=== PATIENT | female | born 1990 | race Caucasian/White ===

== ENCOUNTER → 2019-07-11 07:13 | Outpatient (CLI) | payer OTHER, SELFPAY ==
--- NOTE | 2019-07-11 | DI.US.S_ITS ---
PROCEDURE: US OB >= 14 WEEKS FETUS INDICATIONS: ANATOMY OUTSIDE/PRIOR DATING DATA: Last menstrual period (LMP): 02/14/2019. LMP-based estimated date of delivery (KANWAL): 11/21/2019. First dating scan (date and location): 07/11/2019. Estimated date of delivery (KANWAL) from first dating scan: 11/27/2019. TECHNIQUE: Real-time scanning was performed of the fetus, with image documentation and biometric measurements. Endovaginal scanning: not performed COMPARISON: [facility], , PELVIC COMPLETE WITH TRANSVAGINAL, 01/04/2019, 15:43. FINDINGS: General: A single living intrauterine gestation is present. Presentation: Breech. Placenta: Placental position is anterior, without previa. Amniotic fluid index: 15.9 cm, normal range is 5-24 cm; the largest pocket 5 cm heart rate: 140 beats per minute. Maternal cervical canal: 3.7 cm long. Normal lower limit is 2.5 cm. biometrics: Biparietal diameter: 20 weeks 0 day Head circumference: 20 weeks 1 day Abdominal circumference: 21 weeks 1 day Femur length: 20 weeks 2 days Estimated gestational age from initial scan: 20 weeks 1 day. Composite gestational age from present scan: 20 week 3 day Estimated weight and percentile: 366 gm; 73% Measurement variability for biometric dating: +/- 7 days from 14 weeks to 15 weeks 6 days gestation, +/- 10 days from 16 weeks to 21 weeks 6 days gestation, +/- 2 weeks from 22 weeks to 27 weeks 6 days gestation, +/- 3 weeks for 28 weeks gestation or later. weight reference: 4500 g or EFW >90/95% is considered macrosomia or large for gestational age. EFW <10% is small for gestational age. EFW 5% or less is considered intra-uterine growth restriction. Anatomic survey: Neuro: Ventricles are non-dilated at less than 10 mm. Cisterna magna is normal at 3-11 mm. Cerebellum is normal in size and morphology. Nuchal skin fold: Normal at less than 6 mm between 14-21 weeks gestational age. Face: Nose and lips, facial profile are normal. Spine: No evidence for spina bifida. Heart: 4-chambered heart is present, the ventricular outflow tracts are not well seen. Diaphragm: Diaphragm is intact. Stomach: Left-sided stomach is present. Kidneys: No hydronephrosis. Normal is less than 5 mm in 2nd trimester, less than 7 mm in 3rd trimester. Cord: 3-vessel cord has orthotopic insertion. Bladder: Normal in size. Extremities: All 4 extremities identified. IMPRESSION: 1. A single living intrauterine gestation with appropriate interval growth. 2. cardiac outflow tracts are not well-seen; otherwise normal anatomic survey. Dictated by: Tristin Pederson M.D. on 07/11/2019 at 9:09 Approved by: Tristin Pederson M.D. on 07/11/2019 at 9:21
== END ==
PROVIDERS: Referring Provider Nurse Practitioner Obstetrics & Gynecology; Visit Provider Nurse Practitioner Obstetrics & Gynecology
DX: Z3A.20 20 weeks gestation of pregnancy (principal)
CPT/HCPCS: 76811

== ENCOUNTER → 2019-07-19 10:09 | Outpatient (CLI) | payer OTHER, SELFPAY ==
--- NOTE | 2019-07-19 | DI.US.S_ITS ---
PROCEDURE: US OB FOLLOW UP INDICATIONS: RE-CHECK OUTFLOW TRACTS. OUTSIDE/PRIOR DATING DATA: Last menstrual period (LMP): 02/14/2019. LMP-based estimated date of delivery (KANWAL): 11/21/2019. First dating scan (date and location): 07/11/2019. Estimated date of delivery (KANWAL) from first dating scan: 11/27/2019. TECHNIQUE: Real-time scanning was performed of the fetus, with image documentation. COMPARISON: [facility], OB >= 14 WEEKS FETUS, 07/11/2019, 7:28. FINDINGS: A single live intrauterine gestation is present. Presentation: Breech. Placenta: Placental position is anterior, without previa. Amniotic fluid index: 12.1 cm, normal range is 5-24 cm. heart rate: 150 beats per minute. Maternal cervical canal: 3.2 cm long. Normal lower limit is 2.5 cm. Estimated gestational age from initial scan: 21 weeks 2 days. The cardiac outflow tracts now demonstrate normal appearance. IMPRESSION: Normal appearance of the cardiac outflow tracts. Dictated by: Jax Ruiz M.D. on 07/22/2019 at 11:27 Approved by: Jax Ruiz M.D. on 07/22/2019 at 11:28
== END ==
PROVIDERS: Referring Provider Nurse Practitioner Obstetrics & Gynecology; Visit Provider Nurse Practitioner Obstetrics & Gynecology
DX: Z36.2 Encounter for other antenatal screening follow-up (principal); Z3A.21 21 weeks gestation of pregnancy
CPT/HCPCS: 76816

== ENCOUNTER → 2019-09-09 07:00 | Outpatient (CLI) | payer OTHER, SELFPAY ==
[2019-09-09 07:48] LABS: Hematocrit 35.5 % (36-46); Hemoglobin 12.6 g/dL (12.0-16.0); Mean Corpuscular HGB Conc 35.5 % (30-36); Mean Corpuscular Hemoglobin 33.4 PG (26-34); Mean Corpuscular Volume 94.3 fL (80-100); Platelet Count 190 X10^3/uL (150-400); Red Blood Cell Count 3.76 X10^6/uL (4.0-5.2); Red Cell Distribution Width 12.9 % (11.6-14.8); White Blood Cell Count 8.7 X10^3/uL (4.5-11.0)
[2019-09-09 08:12] LABS: Glucose Fasting 84 mg/dL (70-100)
[2019-09-09 08:40] LABS: Glucose 1 Hour 140 mg/dL (70-170)
[2019-09-09 10:28] LABS: Glucose Tol Interpretation INTERPRETATION
[2019-09-09 10:35] LABS: Glucose 2 Hour 95 mg/dL (70-140)
== END ==
PROVIDERS: Referring Provider Nurse Practitioner Obstetrics & Gynecology; Visit Provider Nurse Practitioner Obstetrics & Gynecology
DX: Z34.90 Encounter for supervision of normal pregnancy, unspecified, unspecified trimester (principal); Z13.1 Encounter for screening for diabetes mellitus; Z3A.26 26 weeks gestation of pregnancy
CPT/HCPCS: 36415; 82951; 82952; 85027

== ENCOUNTER 2019-10-16 12:50 | Outpatient (CLI) | payer OTHER, SELFPAY ==
--- NOTE | 2019-10-16 13:02 | PM.OBTRLD ---
Visit Information Visit Information Date of evaluation: 10/16/19 Primary OB Provider: Neetu Carl On-call OB Provider: Charline Heath Comments/Additional reasons for admission: 28YO @ 34wks by LMP and early US presents for evaluation of decreased FM. Has felt some hiccups and small FM, but not the normal level of activity for the last few days. No cramping, VB or LOF. Uncomplicated PN care w/ CNM. Vital Signs Vital Signs: BP 125/65, HR 75bpm, RR16/min, T97.9F Temporal Review of Systems Review of Systems ROS: Yes All systems reviewed with the patient and are negative except as otherwise documented Exam Vital Signs (past 8 hours): see above Presentation: vertex Evaluation Evaluation Baseline heart rate: 120 Variability: Moderate (11-25) monitor accelerations: Present monitor decelerations: Absent Contraction Frequency (minutes): 0 Category of Tracing: I Comments: CE not indicated Diagnosis, Plan/Disposition Final Diagnosis (1) Decreased movement affecting management of in third trimester: Status: Acute Problem details: RNST. Reassurance of normal given and kick counts discussed. Plan/Disposition Plan: Dischareg to home with routine precautions OB Disposition: home
== END 2019-10-16 13:11 | disposition home or self-care (01) ==
LOC: OB 14:23
PROVIDERS: Referring Provider Nurse Practitioner Obstetrics & Gynecology; Visit Provider Nurse Practitioner Obstetrics & Gynecology
DX: O36.8130 Decreased fetal movements, third trimester, not applicable or unspecified (principal); Z3A.34 34 weeks gestation of pregnancy
CPT/HCPCS: 59025; G0378; G0379

== ENCOUNTER → 2019-10-31 09:42 | Outpatient (ROUT) | payer OTHER, SELFPAY ==
[2019-10-31 10:05] LABS: Alanine Aminotransferase 16 IU/L (<35); Albumin 3.2 g/dL (3.5-5.0); Albumin Globulin Ratio 1.3 (1.0-2.8); Alkaline Phosphatase 170 U/L (38-126); Aspartate Aminotransferase 24 IU/L (14-36); Bilirubin Total 0.4 mg/dL (0.2-1.3); Bilirubin Unconjugated 0.3 mg/dL (0.0-1.1); Globulin 2.4 g/dL (1.7-4.1); HEMOLYSIS < 15 (0-50); Total Protein 5.6 g/dL (6.3-8.2)
[2019-11-01 09:40] LABS: Bile Acids 3.6 umol/L (0.0-10.0)
== END ==
PROVIDERS: Visit Provider Nurse Practitioner Obstetrics & Gynecology
DX: Z34.90 Encounter for supervision of normal pregnancy, unspecified, unspecified trimester (principal); Z36.85 Encounter for antenatal screening for Streptococcus B; L29.8 Other pruritus; Z3A.36 36 weeks gestation of pregnancy
CPT/HCPCS: 80076; 82239; 87081

== ENCOUNTER 2019-11-22 07:37 | Inpatient (IN) | payer OTHER, SELFPAY ==
--- NOTE | 2019-11-22 07:45 | PM.OBHP.1 ---
OB HPI Date/Time Date of admission: 11/22/19 Date Patient Seen: 11/22/19 Time Patient Seen: 07:40 History of Present Condition Chief complaint: MATERNITY : 2 Para: 0 Estimated Date of Delivery: 11/27/19 Estimated Gestational Age (weeks): 39.2 Narrative: Concepcion Yepez is a 28 year old female @ [id number] by sure LMP and early US who presents for evaluation of labor. Contractions started last night at 10pm and have steadily progressed in frequency and intensity. +FM. No VB or LOF. History of Present care: good care, initiated at week # (7), number of visits (11) and pounds weight gain (22) Dating criteria: LMP confirmed by 1st trimester US Ultrasounds: normal 1st trimester US and normal mid trimester US Obstetrical complications: none Medical complications: none Preadmission Labs Blood type: A (+) positive -: Antibody screen: negative, GBS status: negative, HBsAG: negative, HIV: negative and RPR/VDLR: negative -: Chlamydia screen: not detected and Gonorrhea screen: not detected -: Rubella: immune HCT: 35.5 HCAB: negative PAP: Normal Cell-free DNA: negative, male (XY) Narrative: 2 hr gtt: 84/140/95 Prior (ies) History: 01/04/19: 6wk SAB Evaluation Evaluation Baseline heart rate: 145 Variability: Moderate (11-25) monitor accelerations: Present monitor decelerations: Absent Contraction Frequency (minutes): 4 Uterine Contraction Intensity: Strong/Firm Category of Tracing: Reactive Cervical dilation (cm): 4 Cervical effacement (%): 85 station: -3 Laboratory results: [id number] Surgical History (Updated 11/22/19 @ 08:14 by Neetu Carl CNM) History of lateral meniscus repair of left knee (Acute) Family History (Updated 11/22/19 @ 08:16 by Neetu Carl CNM) Father Substance abuse Social History (Updated 11/22/19 @ 08:16 by Neetu Carl CNM) marital status: household members: spouse lives independently: Yes caregiver/support person: No housing: house education level: college occupational status: employed current occupational exposures/hazards: No Smoking Status: Never smoker Meds Home Medications and Allergies Home Medications Medication Instructions Recorded Confirmed Type 11/22/19 History Allergies Allergy/AdvReac Type Severity Reaction Status Date / Time No Known Drug Allergies Allergy Unverified 11/22/19 08:11 Exam Vital Signs (past 8 hours): BP 112/65, HR 72bpm, T 36.1C Temporal, SpO2 97% Resp Effort & Inspection: normal respiratory effort Auscultation: clear to auscultation bilaterally Cardio Rate: regular rate Rhythm: regular rhythm Heart Sounds: S1 normal and S2 normal Uterus Location (Fundal Height): 37 Presentation: vertex Estimated Weight (lbs): 7 Assessment and Plan Assessment and Plan Assessment and Plan narrative: A: Term primipara Active Labor No indication for GBS prophylaxis Cat I FHR P: Admit, routine orders w/ rapid COVID testing. May switch to IA. Labor support PRN. Reassess in 4 hours or sooner, PRN. Time Spent with Patient Total time spent with greater than 50% in coordination of care (as documented) at patient's floor/unit and/or counseling patient:: 15-24 minutes
[2019-11-22 09:35] LABS: COVID19 -Nasal RAPID Negative (Negative)
[2019-11-22 09:50] LABS: Add Manual Diff / Slide Review NO; Basophils Absolute Auto 100 /uL (0-100); Basophils Percent Auto 0.3 % (0-2); Eosinophils Absolute Auto 0 /uL (0-450); Eosinophils Percent Auto 0.3 % (2-4); Hematocrit 40.9 % (36-46); Lymphocytes Absolute Auto 1900 /uL (1100-4500); Lymphocytes Percent Auto 10.9 % (25-40); Mean Corpuscular HGB Conc 34.3 % (30-36); Mean Corpuscular Hemoglobin 31.9 PG (26-34); Mean Corpuscular Volume 92.9 fL (80-100); Monocytes Absolute Auto 700 /uL (0-900); Monocytes Percent Auto 4.1 % (3-14); Neutrophils Absolute Auto 14800 /uL (1500-7000); Neutrophils Percent Auto 84.4 % (50-75); Platelet Count 225 X10^3/uL (150-400); Red Cell Distribution Width 12.9 % (11.6-14.8); White Blood Cell Count 17.5 X10^3/uL (4.5-11.0)
[2019-11-22 11:34] VITALS: BP 112/66
--- NOTE | 2019-11-22 13:25 | PM.OBPNLAB ---
Date/Time Date Patient Seen: 11/22/19 Time Patient Seen: 13:20 Pain Control Pain control: tolerating well Comments: Has been breathing through regular contractions every 2-5 minutes until 45 minutes ago when contractions spaced to Q8 minutes. Pt was able to rest, but is now planning to move and get things going again. Pelvic Exam Dilation (cm): 5 Effacement (%): 90 station: -2 Amniotic membrane status: Bulging Contractions Contractions on admission: regular Monitor mode: Palpation Pitocin rate (mU/min): 0 Contraction pattern: Regular Contraction intensity: Strong/Firm Status status: Category l Heart Rate Baseline: 135 Comments: Reassuring by IA. No decreases. Assessment and Plan Assessment: active labor Plan: continuous present management Comments: Encouraged ambulation and lots of movement. Discussed labor augmentation which patient declines at this time, but agrees to if contractions stay spaced over the next hour or so. RN notified of plan and IA Q30 minutes. Reassess in 4 hours or sooner, PRN.
--- NOTE | 2019-11-22 17:43 | PM.OBPNLAB ---
Date/Time Date Patient Seen: 11/22/19 Time Patient Seen: 17:35 Pain Control Pain control: tolerating well Comments: breathing through regular contractions, coping well. Pelvic Exam Dilation (cm): 6 Effacement (%): 90 station: -2 Amniotic membrane status: Bulging Contractions Monitor mode: Palpation Pitocin rate (mU/min): 0 Contraction frequency (min): 4 Contraction duration (min): 2 Contraction pattern: Regular Contraction intensity: Strong/Firm Status status: Category l Heart Rate Baseline: 140 Comments: Regular rate, no decreases, remains reassuring by IA. Assessment and Plan Assessment: active labor Comments: Discussed slow, but steady progress. Offered labor augmentation w/ pitocin and/or AROM. Patient currently declines both options, but is considering them for later. Planning labor tub and continue IA and labor support. Reassess in 4 hours or sooner, PRN.
[2019-11-22] MEDS: OXYTOCIN PREMIX 30 UNIT/500 ML PLAST..BAG IV (19:00)
[2019-11-22] MEDS: LACTATED RINGERS 1,000 ML 100 ML IV (19:01)
--- NOTE | 2019-11-22 19:27 | PM.OBPNLAB ---
Date/Time Date Patient Seen: 11/22/19 Time Patient Seen: 19:20 Pain Control Pain control: tolerating well Comments: Contractions spaced in the tub and patient requested pitocin augmentation which was started at 1905. VSS, see OBIX. Pelvic Exam Dilation (cm): 6 Effacement (%): 90 station: -2 Amniotic membrane status: Bulging Comments: CE deferred Contractions Monitor mode: Palpation Pitocin rate (mU/min): 2 Contraction frequency (min): 6 Contraction pattern: Regular Contraction intensity: Moderate Status status: Category l Heart Rate Baseline: 140 Monitor Accelerations: Present Monitor Decelerations: Absent Monitor Variability: Moderate Assessment and Plan Assessment: active labor Plan: begin patient augmentation Comments: Will perform CE 2 hours after strong, regular contractions are achieved. Continuous EFM, continuous labor support. OB Back-up/ notified of pt status, progress and plan for augmentation once patient consented at 1730. Reassess in 4 hours or sooner, PRN.
--- NOTE | 2019-11-23 02:39 | P.PCNOB_ITS ---
Labor & Delivery Delivery date: 11/23/19 Intrapartal events: None Cervical ripening method: none Induction method: none Delivery augmentation: pitocin Delivery monitor: external FHT and external uterine Route of delivery: L&D Laceration Description: Perineal - 1st Degree and Vaginal - 2nd Degree Delivery repair: chromic (3.0) Estimated blood loss (mL): 300 Anesthesia type: None Narrative: Patient labored well unmedicated for pain. Labor was augmented with pitocin max 4u/min. Patient began to feel spontaneous urge to push and was found to be C/C/0. Patient was assisted out of the tub and into bed where she was coached on pushing. Slow, but steady descent of vertex was noted throughout second stage. Cat II FHR for recurrent variable decelerations w/ pushing, improved w/ position changes. NSVB of a vigorous baby boy in ROP position w/ no NC and easy delivery of the shoulder. [place] was placed on maternal abdomen for drying and [id number]. Pitocin was increased to 300mL/hr for AMTSL. Apgars 9/9. After cessation of pulsation, the cord was double clamped and cut. Hospital cord blood hold sample was collected. Gentle cord traction led to spontaneous, Schultze delivery of an apparently intact placenta, membranes and 3VC. Placenta was noted to have a separate lobe and significant calcifications. Fundus firm and bleeding minimal. Inspection revealed a 1st degree perineal laceration that extended to a 2nd degree left sulcus vaginal laceration. These were repaired w/ 3.0 Chromic in the usual fashion. QBL 300mL. both mother and baby stable and as I left the room. [place] Baby 1: gender: Male Presentation: vertex position: Right Occiput Posterior Placenta delivery description: Spontaneous cord vessel description: 3 Vessels score (1 min): 9 score (5 min): 9 Plan for aftercare: Routine PP orders.
[2019-11-23] MEDS: KETOROLAC 30 MG/ML VIAL IV (03:30)
[2019-11-23] MEDS: DERMOPLAST SPRAY 20% 60 ML 1 SPRAY TOP (09:24)
[2019-11-23] MEDS: PRENATAL VIT,CALC/IRON/FOLIC 1 TABLET 1 TAB PO (09:25)
[2019-11-23] MEDS: DOCUSATE 100 MG CAPSULE PO (09:25)
[2019-11-23] MEDS: LANOLIN OINT 7 GM 1 APPLIC TOP (09:25)
[2019-11-23] MEDS: IBUPROFEN 600 MG TABLET PO ×2 (09:25→15:10)
[2019-11-23 17:31] VITALS: BP 116/61; PULSE 73; RESP 16; TEMP 37.2
--- NOTE | 2019-11-23 19:31 | P.DS_ITS ---
Discharge Providers Provider Date of admission: 11/22/19 07:37 Discharge Date: 11/23/19 Primary care physician: Neetu Carl Consults: 11/24/19 02:37 Consult to Unemployment Inspector Routine Comment: Discharge provider: Neetu Carl CNM Summary Hospital Course Date Patient Seen: 11/23/19 Time Patient Seen: 17:30 Hospital Course: Patient eager for discharge to home. Voiding and ambulating independently. well today without assistance. Pain well controlled w/ PO medication. Tolerating general diet. Lochia light, no clots. Has been icing perineum with significant improvement in discomfort and swelling. present and supportive. Peripartum Data Infant Delivery Method: Natural Vaginal Laceration Description: Perineal - 1st Degree and Vaginal - 2nd Degree complications: none [place] 1: Gender: Male Disposition of : home Status at Discharge Functional status at discharge: independent ambulation Overall status at discharge: patient is progressing back to baseline Time Spent with Patient Time attestation: Total time spent providing and/or coordinating discharge services: Time spent: Less than 30 minutes Objective Labs Result Diagrams: 11/22/19 09:45 Exam Vital Signs (past 8 hours): - 11/23/19 17:31 Temperature 99.0 F Pulse Rate 73 Respiratory Rate 16 Blood Pressure 116/61 Other: Fundus firm @ U and lochia light. Psych Appearance: grossly normal Affect: normal affect Thought Process: normal Discharge Plan Discharge Plan Patient Disposition: Home Discharge orders & Medications Prescriptions: New ibuprofen 600 mg Tablet 600 mg PO Q6HR PRN (Reason: Pain, Mild (1-3)) 14 Days Qty: 60 RF: 1 docusate sodium [DOK] 100 mg Capsule 100 mg PO DAILY 14 Days Qty: 28 RF: 0 acetaminophen 325 mg Tablet 650 mg PO Q6HR PRN (Reason: Pain, Mild (1-3)) 14 Days Qty: 60 RF: 1 Continued 1 tab bottle DAILY RF: 0 Follow up/Referrals: Neetu Carl CNM [[employer]] - (Follow up in 2 weeks and 6 weeks , as scheduled. Call with any concerns) Diet/Activity/Treatments Diet: Diet as Tolerated Activity: pelvic rest x 6 weeks Skin/Wound/Dressing Care Report to your healthcare provider any signs of infection, such as:: chills, fever, increased pain, unusual drainage and unusual redness Visit Report/Discharge Packet Instructions: DI for Depression Visit Report Forms: Patient Portal/API, Stroke Signs & Symptoms Discharge Data Attending Provider: Neetu Carl Admit Date/Time: 11/22/19 07:37
== END 2019-11-23 21:10 | disposition home or self-care (01) | DRG 807 ==
PROVIDERS: Admitting Provider Nurse Practitioner Obstetrics & Gynecology; Referring Provider Nurse Practitioner Obstetrics & Gynecology; Visit Provider Nurse Practitioner Obstetrics & Gynecology
DX: O70.1 Second degree perineal laceration during delivery (principal); Z37.0 Single live birth; Z3A.39 39 weeks gestation of pregnancy; O70.0 First degree perineal laceration during delivery; Z11.59 Encounter for screening for other viral diseases
CPT/HCPCS: 59050; 85025; 86850; 86900; 86901; 87635; G0378; G0379; J1885; J2590

== ENCOUNTER → 2022-03-07 08:34 | Outpatient (CLI) | payer OTHER, SELFPAY ==
--- NOTE | 2022-03-07 | DI.US.S_ITS ---
PROCEDURE: US OB >= 14 WEEKS FETUS INDICATIONS: ANATOMY SCAN OUTSIDE/PRIOR DATING DATA: Last menstrual period (LMP): 10/01/2021. LMP-based estimated date of delivery (KANWAL): 07/08/2022. First dating scan (date and location): 11/25/2021. Estimated date of delivery (KANWAL) from first dating scan: 07/17/2022. The calculations are made using the working KANWAL of 07/17/2022. TECHNIQUE: Real-time scanning was performed of the fetus, with image documentation and biometric measurements. Endovaginal scanning: Not performed COMPARISON: [facility], US, US OB < 14 WEEKS + OB TRANSVAG, 11/25/2021, 10:36. FINDINGS: General: A single living intrauterine gestation is present. Presentation: Breech. Placenta: Placental position is anterior , without previa. Amniotic fluid index: 18.7 cm, normal range is 5-24 cm. Single deepest vertical pocket is 5.2 cm. heart rate: 131 beats per minute. Maternal cervical canal: 4.1 cm long. Normal lower limit is 2.5 cm. biometrics: Biparietal diameter: 22 weeks 1 day Head circumference: 21 weeks 3 days Abdominal circumference: 22 weeks 0 day Femur length: 20 weeks 3 days Clinically estimated gestational age: 21 weeks 1 days Composite gestational age from present scan: 21 weeks 4 days Estimated weight and percentile: 419 g; 57%. Anatomic survey: Neuro: Ventricles are non-dilated at less than 10 mm. Cisterna magna is normal at 3-11 mm. Cerebellum is normal in size and morphology. Nuchal skin fold: Normal at less than 6 mm between 14-21 weeks gestational age. Face: Nose and lips, facial profile are normal. Spine: No evidence for spina bifida. Heart: 4-chambered heart is present, with normal ventricular outflow tracts. Diaphragm: Diaphragm is intact. Stomach: Left-sided stomach is present. Kidneys: No hydronephrosis. Normal is less than 5 mm in 2nd trimester, less than 7 mm in 3rd trimester. Cord: 3-vessel cord has orthotopic insertion. Bladder: Normal in size. Extremities: All 4 extremities identified. IMPRESSION: 1. A single living intrauterine gestation with appropriate interval growth. 2. Normal anatomic survey. 3. Fetus in breech presentation. We strive to produce accurate, complete, and clear reports of imaging services. To assist us in improving patient care, this report was composed using standard report templates and voice recognition software. Therefore, it may contain abnormal punctuation, insertions and/or omissions. Occasional wrong-word or sound-alike substitutions may occur. Though we review the report and make efforts to correct it, we do recommend that the report be read carefully in proper context to recognize any text inaccuracies. Dictated by: Tristin Pederson M.D. on 03/07/2022 at 11:55 Approved by: Tristin Pederson M.D. on 03/07/2022 at 11:59
== END ==
PROVIDERS: Referring Provider Nurse Practitioner Obstetrics & Gynecology; Visit Provider Nurse Practitioner Obstetrics & Gynecology
DX: Z34.92 Encounter for supervision of normal pregnancy, unspecified, second trimester (principal); Z3A.21 21 weeks gestation of pregnancy
CPT/HCPCS: 76811

== ENCOUNTER → 2022-03-29 07:46 | Outpatient (CLI) | payer OTHER, SELFPAY ==
[2022-03-29 08:17] LABS: Hematocrit 33.2 % (36-46); Hemoglobin 11.8 g/dL (12.0-16.0); Mean Corpuscular HGB Conc 35.6 % (30-36); Mean Corpuscular Hemoglobin 32.7 PG (26-34); Mean Corpuscular Volume 91.9 fL (80-100); Platelet Count 189 X10^3/uL (150-400); Red Blood Cell Count 3.61 X10^6/uL (4.0-5.2); Red Cell Distribution Width 12.4 % (11.6-14.8); White Blood Cell Count 7.3 X10^3/uL (4.5-11.0)
[2022-03-29 08:31] LABS: Glucose Fasting 81 mg/dL (70-100)
[2022-03-29 10:09] LABS: Glucose Tol Interpretation INTERPRETATION
[2022-03-29 10:16] LABS: Glucose 1 Hour 108 mg/dL (70-170)
[2022-03-29 10:48] LABS: Glucose 2 Hour 74 mg/dL (70-140)
== END ==
PROVIDERS: Referring Provider Nurse Practitioner Obstetrics & Gynecology; Visit Provider Nurse Practitioner Obstetrics & Gynecology
DX: Z34.90 Encounter for supervision of normal pregnancy, unspecified, unspecified trimester (principal); Z13.1 Encounter for screening for diabetes mellitus; Z3A.26 26 weeks gestation of pregnancy
CPT/HCPCS: 36415; 82951; 82952; 85027

== ENCOUNTER 2022-07-20 08:57 | Inpatient (IN) | payer OTHER, SELFPAY ==
--- NOTE | 2022-07-20 | PATH_ITS ---
[facility] Accession Number: [id number] No. of containers..01 Tissue . 01 Material submitted: . placenta - PLACENTA . 01 Diagnosis: Placenta, Delivery: Mature edmonds placenta (339 grams) with perivillous fibrin deposition and calcification. - Negative for villitis, infarction, and neoplasia. Marginally inserted membranes. - Negative for chorioamnionitis and meconium staining. Eccentrically attached trivascular umbilical cord. - Negative for funisitis, true knots, and thrombosis. - A possible accessory lobe is identified. 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 [facility] 07/26/2022 1020 Local . 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 . 01 Electronically signed: . Merle Mcclure MD, Pathologist NPI- [id number] . 01 Gross description: . The specimen is received in formalin labeled with the patient's name, , and placenta, and consists of an irregularly shaped edmonds placenta with a trimmed weight of 339 grams, and measuring 20.5 x 14.9 x 1.6 cm. The placental disc invaginates forming an almost complete accessory lobe measuring 7.9 x 6.4 cm still connected to the main placenta in an area measuring 2.3 cm wide. No additional lobes are identified. . The membranes are loo and translucent with a small well-circumscribed pale loo nodule measuring 0.3 x 0.3 x 0.2 cm. No additional areas of discoloration or thickening are identified. The membranes insert at the margin and have a point of rupture 2.3 cm from the nearest placental disc edge. . The cord is detached and measures 37.7 cm in length by 1.0 cm in average diameter with a leftward coil and an index of approximately 2 twists per 5 cm. The cord was detached at the surface, so the presumed insertion point is eccentric measuring 3.5 cm from the nearest placental disc edge. Sectioning reveals unremarkable trivascular architecture with no knots or lesions identified. . The surface is pink-fletcher with normal arborizing vasculature with no areas of discoloration or lesions identified. . The maternal surface is apparently complete with loo, roughened areas of discoloration occupying approximately 20% of the maternal surface. No adherent hemorrhage is identified, and sectioning reveals a red, spongy cut surface with no areas of loo discoloration or lesions identified. . [employer] sections are submitted as follows: A1: Cord. A2: Membrane roll. A3-A4: Full thickness maternal surface discoloration. A5-A7: Central full thickness normal sections. ([id number]) /HEIDY 07/21/2022 1141 Local . 01 Pathologist provided ICD-10: O43.90 . 01 CPT . 108715 Specimen Comment: A courtesy copy of this report has been sent to [facility] Pathology Performed at: 01 [facility] Cytology [address] [place] [address], [place], [place] [id number] MD Kong Rodriguez MD Phone: [phone]
[2022-07-20] MEDS: AMPICILLIN 2,000 MG in SODIUM CHLORIDE 0.9% 100 ML 200 MG IV (09:50)
[2022-07-20 09:58] LABS: Add Manual Diff / Slide Review NO; Basophils Absolute Auto 100 /uL (0-100); Basophils Percent Auto 0.7 % (0-2); Eosinophils Absolute Auto 200 /uL (0-450); Hematocrit 39.6 % (36-46); Hemoglobin 13.9 g/dL (12.0-16.0); Lymphocytes Absolute Auto 2500 /uL (1100-4500); Lymphocytes Percent Auto 28.5 % (25-40); Mean Corpuscular Volume 91.5 fL (80-100); Monocytes Absolute Auto 500 /uL (0-900); Monocytes Percent Auto 5.4 % (3-14); Neutrophils Absolute Auto 5500 /uL (1500-7000); Neutrophils Percent Auto 63.4 % (50-75); Platelet Count 180 X10^3/uL (150-400); Red Blood Cell Count 4.32 X10^6/uL (4.0-5.2); Red Cell Distribution Width 12.9 % (11.6-14.8); White Blood Cell Count 8.7 X10^3/uL (4.5-11.0)
--- NOTE | 2022-07-20 13:22 | P.HPOB_ITS ---
OB HPI Date/Time Date of admission: 07/20/22 Date Patient Seen: 07/20/22 Time Patient Seen: 13:22 History of Present Condition Chief complaint: OBS OF LABOR : 2 Para: 1 Estimated Date of Delivery: 07/17/22 Estimated Gestational Age (weeks): 40.3 Narrative: Concepcion Yepez is a 31 year old female @ 20ocm2izpi by LMP concordant with 11wks US presents for evaluation of labor. Awoke at 0130 with wet underwe ar and came into triage this morning for an evaluation. Was Amnisure POSITIVE at that time with a reactive NST and bulging forebag with CE of 690/-3. Received Ampicillin 2grams and went home after counseling and electing expectant management of PROM. Contractions began to strengthen with regularity around noon and she returned for evaluation, now breathing through strong contractions every 2-3 minutes. Had uncomplicated PN care w/ CNMs and desires low intervention . History of Present care: good care, initiated at week # (11), number of visits (9) and pounds weight gain (25) Dating criteria: LMP confirmed by 1st trimester US Ultrasounds: normal mid trimester US Obstetrical complications: none Medical complications: none Preadmission Labs Blood type: A (+) positive -: Antibody screen: negative, GBS status: positive, HBsAG: negative, HIV: negative and RPR/VDLR: negative -: Chlamydia screen: not detected and Gonorrhea screen: not detected -: Rubella: immune and Varicella: immune HCT: 33.2 HCAB: negative PAP: Normal Cell-free DNA: Negative Narrative: 2hr gtt: 81, 108, 74 Prior (ies) History: 11/23/2019: NSVB @ [id number], 7#14oz male, no medications, 2nd degree perineal laceration Evaluation Evaluation Baseline heart rate: 135 Variability: Moderate (11-25) monitor accelerations: Present Monitor Decelerations: Absent Contraction Frequency (minutes): 2 Uterine Contraction Intensity: Strong/Firm Status: Category l Comments: CE deferred [facility] Medical History Second degree perineal laceration during delivery Surgical History History of lateral meniscus repair of left knee Family History Father Substance abuse Social History marital status: household members: spouse lives independently: Yes caregiver/support person: No housing: house education level: college occupational status: employed current occupational exposures/hazards: No Smoking Status: Never smoker Meds Home Medications and Allergies Home Medications Medication Instructions Recorded Confirmed Type DAILY 11/22/19 History Allergies Allergy/AdvReac Type Severity Reaction Status Date / Time No Known Drug Allergies Allergy Verified 11/22/19 12:11 Review of Systems Review of Systems ROS: Yes All systems reviewed with the patient and are negative except as otherwise documented OB Exam Vital signs Blood Pressure: 124/72 Pulse Rate: 68 Temperature: 97.5 F Resp Effort & Inspection: normal respiratory effort and able to speak in complete sen tences Auscultation: clear to auscultation bilaterally Cardio Rate: regular rate Rhythm: regular rhythm Presentation: vertex Objective Labs 07/20/22 09:40 Labs: Laboratory Results - last 24 hr 07/20/22 07/20/22 09:40 09:40 WBC 8.7 RBC 4.32 Hgb 13.9 Hct 39.6 MCV 91.5 MCH 32.0 MCHC 35.0 RDW 12.9 Plt Count 180 Neut % (Auto) 63.4 Lymph % (Auto) 28.5 Curry % (Auto) 5.4 Eos % (Auto) 2.0 Baso % (Auto) 0.7 Neut # (Auto) 5500 Lymph # (Auto) 2500 Curry # (Auto) 500 Eos # (Auto) 200 Baso # (Auto) 100 Blood Type A Positive Antibody Screen Negative Assessment and Plan Assessment and Plan Assessment and Plan narrative: A: Term multiapra Active labor SROM x 12 hours without sx of infection GBS prophylaxis adequate Cat I FHR P: Admit, routine orders. May switch to intermittent auscultation. Continue GBS prophylaxis Q 4 hours. Labor support PRN. Anticipate NSVB.
[2022-07-20 13:34] VITALS: BP 124/72; PULSE 68; TEMP 36.4
[2022-07-20] MEDS: AMPICILLIN 1,000 MG in SODIUM CHLORIDE 0.9% 100 ML 200 MG IV (13:46)
[2022-07-20 14:03] VITALS: BP 124/72
[2022-07-20] MEDS: OXYTOCIN PREMIX 30 UNIT/500 ML PLAST..BAG 200 UNIT IV (16:19)
--- NOTE | 2022-07-20 17:03 | PM.OBPRVD ---
Events: Labor Augmentation Labor & Delivery Delivery date: 07/20/22 Intrapartal Events: None Cervical ripening method: none Induction method: none Delivery monitor: external FHT Route of delivery: Episiotomy description: None L&D Laceration Description: None Quantitative Blood Loss: 50 Anesthesia Type: Other (Nitrous Oxide) Narrative: Concepcion labored well with rapid progression after AROM of forebag, which was performed at her request at 1530. NO2 for labor analgesia. 2 doses of antibiotics administered. Reassuring FHR by intermittent auscultation throughout. Presumed complete with spontaneous urge to push, followed shortly after by NSVB of a vigorous baby boy in DENG position over an intact perineum. After cessation of pulsation, a notably short cord was double clamped and cut. 30 units of pitocin in 500mL LR was started at 250mL/hr for AMTSL. Gentle cord traction led to cord evulsion at the 28 minute dante with minimal bleeding. Patient resumed use of NO2 for manual removal of placenta. Placenta was in vaginal vault and minimal manual effort was required so no antibiotics were ordered . Irregularly shaped, possibly annular placenta with approximately 12 inch 3VC appeared intact. Fundus was immediately firm and bleeding minimal. QBL 50mL. Both mother and baby stable and skin to skin as I left the room. Victoria Baby 1: Infant gender: Male Presentation: vertex Position: Right Occiput Anterior Placenta delivery description: Manual Removal Cord Vessel Description: 3 Vessels score (1 min): 9 score (5 min): 9 Plan for aftercare: Routine care (with placenta to pathology)
--- NOTE | 2022-07-20 17:27 | DI.US.S_ITS ---
PROCEDURE: US PELVIC LIMITED INDICATIONS: immediate , evaluate for retained POCs TECHNIQUE: Real-time transabdominal scanning was performed of the pelvic organs, with image documentation. COMPARISON: [facility], US, US OB >= 14 WEEKS FETUS, 03/07/2022, 8:47. FINDINGS: Uterus: Uterus is anteverted and normal in size at 18.5 x 10.7 x 9.8 cm. The myometrium is heterogeneous. No hyperemia demonstrated. The endometrium measures 5 mm combined thickness. No fibroids seen. Ovaries: The right ovary measures 4.4 x 2 x 1.3 cm, with a calculated ovarian volume of 6 cc. The left ovary is not seen. No significant cyst. Less than 12 ovarian follicles on the right. Other: No pathologic free abdominal or pelvic fluid. IMPRESSION: No retained products of conception. Endometrium measures 5 mm. Heterogeneous appearance of the uterus. This could be due to post gravid status. Also in the differential diagnosis would be myometritis or uterine adenomyosis. Recommend clinical correlation. Short-term follow-up pelvic ultrasound may be helpful. We strive to produce accurate, complete, and clear reports of imaging services. To assist us in improving patient care, this report was composed using standard report templates and voice recognition software. Therefore, it may contain abnormal punctuation, insertions and/or omissions. Occasional wrong-word or sound-alike substitutions may occur. Though we review the report and make efforts to correct it, we do recommend that the report be read carefully in proper context to recognize any text inaccuracies. Dictated by: Beka Desai M.D. on 07/20/2022 at 19:55 Approved by: Beka Desai M.D. on 07/20/2022 at 20:00
[2022-07-20] MEDS: IBUPROFEN 600 MG TABLET PO (18:39)
[2022-07-20] MEDS: ACETAMINOPHEN 325 MG TABLET 650 MG PO (18:40)
[2022-07-21] MEDS: IBUPROFEN 600 MG TABLET PO ×2 (00:15→09:14)
[2022-07-21] MEDS: ACETAMINOPHEN 325 MG TABLET 650 MG PO ×2 (00:16→09:12)
[2022-07-21 09:12] VITALS: TEMP 36.7
[2022-07-21 09:14] VITALS: TEMP 36.7
--- NOTE | 2022-07-21 10:32 | P.DS_ITS ---
Discharge Providers Provider Date of admission: 07/20/22 08:57 Discharge Date: 07/21/22 Primary care physician: Doctor Maninder MD Consults: 07/21/22 17:01 Consult to Iuss Master Analyst Routine Comment: Discharge provider: Judy Nguyễn CNM, FERNANDO Summary Hospital Course Date Patient Seen: 07/21/22 Time Patient Seen: 10:32 Diagnoses: 080.0, Hospital Course: day 1, NSVB with manual removal of retained placenta from cervical os after cord avlusion.Voiding, ambulating, independently. Tolerating a general diet. Pain well controlled with po medication. Vaginal bleeding light without clots. Partner present and supportive. Ready to go home today. Peripartum Data Infant Delivery Method: Natural Vaginal Laceration Description: None Episiotomy description: None 1: Gender: Male Disposition of : home Discharge Diagnosis (1) Delivery normal: Start Date: 07/20/22 Status: Acute Problem Details: routine course (2) Retained placenta or membranes without hemorrhage: Start Date: 07/20/22 Status: Acute Problem Details: Confirmed no POC by ultrasound; no concern for infection (3) Post term over 40 weeks: Start Date: 07/17/22 Status: Acute Problem Details: Delivered Status at Discharge Cognitive/behavioral status at discharge: at baseline, oriented and calm Functional status at discharge: independent ambulation Overall status at discharge: patient is progressing back to baseline Time Spent with Patient Time attestation: Total time spent providing and/or coordinating discharge services: Time spent: Less than 30 minutes Specific discharge activities: discharge teaching including warning signs of mood, bleeding, abnormal PP symptoms. Reviewed and supported breast feeding. Discussed adjustment to new baby for parents and toddler. Objective Labs 07/20/22 09:40 Labs: Laboratory Results - last 24 hr 07/20/22 09:40 Blood Type A Positive Antibody Screen Negative Exam Vital Signs (past 8 hours): - 07/21/22 09:12 07/21/22 09:14 Temperature 98.1 F 98.1 F BP 106/60 Pulse 77 bpm RR 17/min SpO2 96% Const General: healthy appearing and comfortable Nutritional Appearance: well nourished Cardio Rate: regular rate General: other (Fundus firm U-1) Other: Scant rubra lochia Skin General: no rashes or lesions noted Neuro General: patient alert and patient oriented x3 Extrem General: normal to inspection and full ROM Psych Appearance: grossly normal Discharge Plan Discharge Plan Patient Disposition: Home Discharge orders & Medications Prescriptions: New ibuprofen 600 mg Tablet 600 mg PO Q6HR PRN (Reason: Pain, Mild (1-3)) 14 Days Qty: 60 0RF Continued 1 tab bottle See Rx Instructions .ROUTE .COMPLEX Rx Instructions: take one po daily Follow up/Referrals: Doctor Dickens MD [Primary Care Provider] - Judy Nguyễn CNM, FERNANDO [Advanced Physical Education Professor] - 2 Weeks (and 6 weeks as scheduled. ) Diet/Activity/Treatments Diet: Diet as Tolerated and Regular Activity: low newsome for 2 weeks Skin/Wound/Dressing Care Report to your healthcare provider any signs of infection, such as:: chills, fever, increased pain, unusual drainage and unusual redness Visit Report/Discharge Packet Instructions: DI for Depression Stand Alone Forms: Patient Portal/API Discharge Data Primary Care Provider: Doctor Maninder
[2022-07-21 11:50] VITALS: BP 109/63; PULSE 73; RESP 17; TEMP 36.2
== END 2022-07-21 12:35 | disposition home or self-care (01) | DRG 807 ==
PROVIDERS: Admitting Provider Nurse Practitioner Obstetrics & Gynecology; Referring Provider Nurse Practitioner Obstetrics & Gynecology; Visit Provider Nurse Practitioner Obstetrics & Gynecology
DX: O99.824 Streptococcus B carrier state complicating childbirth (principal); Z37.0 Single live birth; Z3A.40 40 weeks gestation of pregnancy; O72.2 Delayed and secondary postpartum hemorrhage
CPT/HCPCS: 36415; 59050; 76857; 84112; 85025; 86850; 86900; 86901; G0379; J0290; J2590

== ENCOUNTER 2022-12-02 08:45 | Outpatient (RCR) | payer OTHER, SELFPAY ==
--- NOTE | 2022-10-07 18:03 | PT.OIE ---
Current Diagnoses Stiffness of unspecified hip, not elsewhere classified (10/07/22) Separation of muscle (nontraumatic), other site (10/07/22) Muscle weakness (generalized) (10/07/22) Stress incontinence (female) (male) (10/07/22) Past Medical History (Last Reviewed 07/20/22 @ 13:30 by Neetu Wiseman CNM) Second degree perineal laceration during delivery Past Surgical History (Last Reviewed 07/20/22 @ 13:30 by Neetu Wiseman CNM) History of lateral meniscus repair of left knee Visit Care Team Role Provider Type ANITA Galloway Primary Care Provider Non-Staff Specialty: Nursing Address: [address] [place] [address], [id number] Email: Neetu Wiseman CNM Attending Provider Advanced Refinery Operator Assistant Referring Provider Specialty: BENEFITS PROCESSOR Address: [address] [place] [address], [address], [id number] Email: [email or web address] Physical Therapy Initial Evaluation PT-OP-A Visit Information Start: 09/27/22 19:58 Freq: Status: Active Protocol: Document 10/07/22 08:05 LRN (Rec: 10/07/22 08:52 ERIC [id number]) Out-Patient Physical Therapy Visit Information Visit Information Visit Type Initial Evaluation Visit Start Time 08:05 Visit Stop Time 08:52 Total Visit Minutes 47 Visit Number Evaluation Information Evaluation Date 10/07/22 Precautions Precautions ACL meniscus repair 10/31/21 PT-OP-B Current Condition Start: 09/27/22 19:58 Freq: Status: Active Protocol: Document 10/07/22 08:05 LRN (Rec: 10/07/22 08:52 LRN [id number]) Current Condition History of Current Condition Onset Date 07/20/[address] and mild urinary incontinence History of Current Condition Physical therapy for Diastasis Rectusis as referred following 6 wk post with 3 finger separation and doming found. States her abdomen is different from first , because tummy went down right away and she was able to return to exercise . Pt reports a little urinary incontinence before following of oldest son. She is currently and breastfed first son for 13 months. 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 States she did not fully complete her s/p meniscus repair due to and her R knee doesn 't feel strong/stable and is painful with squatting and can 't run confidently. Exercise runs around track intermittently ~1/week. Prior Treatments and Tests None. Developmental History Developmental History 2 sons (11/23/2019 and 07/20/22) . Vaginal delivieries w/o tearing. Has IUD placed at 6 wks post- (08/31/22). Treatment Goals Patient/Caregiver Goals Pt goal is: - to be able to ex and work out and know what to do to keep it from getting worse and to decrease the pooch (ex recommendations and to strengthen the core). - to eliminate urinary incontinence. Personal Factors Other Personal Factors That May Effect ACL meniscus repair 10/31/21. Therapy/[place]overy [place] spouse and 2 sons, ages 2 yo and soon to be 3 month old. PT-OP-C Subjective Start: 09/27/22 19:58 Freq: Status: Active Protocol: Document 10/07/22 08:05 LRN (Rec: 10/07/22 08:52 LRN [id number]) OP-PT Subjective Patient Comments Patient Comments States she has minimal urinary leakage with laughing, cough and sneezing. Primary concern is her DR and lack of core stability/weakness with exercise. Patient Questionnaires Pelvic Pain and Urgency/Frequency Patient Symptom Scale Pelvic Pain Score 8 PT-OP-J Posture/Palpation/Skin Start: 09/27/22 19:58 Freq: Status: Active Protocol: Document 10/07/22 08:05 LRN (Rec: 10/07/22 08:52 LRN [id number]) Posture Evaluation Position Standing L-Spine Posture Increased Lordosis Shoulder Posture (L) Elevated Pelvis Posture (L) Rotated Anterior Weight Distribution Balanced Hip Posture (R) Internally Rotated Knee Posture (L) Genu Varus,(R) Genu Varus, (L) Genu Valgus Ankle/Foot Posture (L) Supinated Foot Arch (L) Medium Arch,(R) Medium Arch Comments Posture Comments Supine: R ASIS is anterior Prone: R PSIS is anterior Palpation Assessment Location Abdomen Palpation Location Diastasis Rectus Palpation Details Decreased abdominal muscle tone. Rectus Diastasis Measurements: Umbilicus 4 above: 1.5 finger width (~2.5 cm) Umbilicus 3 above: 3 finger widths Umbilicus 2 above: 3.25 finger widths Umbilicus 1 above: 3.5 finger widths Umbilicus Umbilicus: 1 below: 4 finger widths Umbilicus: 2 below: 3.5 finger widths Umbilicus: 3 below: not able to feel rectus edges. PT-OP-K Range of Motion Start: 09/27/22 19:58 Freq: Status: Active Protocol: Document 10/07/22 08:05 LRN (Rec: 10/07/22 08:52 LRN [id number]) Lumbar Spine Range of Motion Lumbar Spine Active Degrees Testing Position Standing Flexion 80 Extension 28 Rotation Left 45 Rotation Right 45 Lateral Flexion Left 13 Lateral Flexion Right 13 ROM Limitations Soft Tissue Tightness Comments Trunk AROM: Flexion is 80 deg ?s with 60 deg?s hip flexion, Trunk extension is 28 deg?s with 3 deg?s hip extension. Hip Goniometric Range of Motion Hip Right Passive Testing Position Supine Abduction 50 Internal Rotation 30 External Rotation 68 Left Passive Testing Position Supine Abduction 30 Internal Rotation 35 External Rotation 40 PT-OP-M Strength Start: 09/27/22 19:58 Freq: Status: Active Protocol: Document 10/07/22 08:05 LRN (Rec: 10/07/22 08:52 LRN [id number]) Trunk Strength Trunk Manual Muscle Testing Rotation Left 3+ Fair+ Rotation Right 3+ Fair+ Core Stabilization Lacks core stability with MMT of R hip ext and with neftaly flexion. Doming occured. Hip Strength Hip Manual Muscle Testing Right Comments Generallly 5/5 Left Comments Generallly 5/5 PT-OP-Q Treatments Start: 09/27/22 19:58 Freq: Status: Active Protocol: Document 10/07/22 08:05 LRN (Rec: 10/07/22 08:52 LRN [id number]) Therapeutic Exercises Other Exercises Sit<>Supine Other Exercise Name Trnsfer training sit<>supine with focus on DR protection Reps/Minutes x 3 Comments V and phys cuing for proper movement and for coordination with TA >< Sit<>Stand Other Exercise Name Trnsfer training sit<>stand with focus on DR protection Reps/Minutes x 2 Comments V and phys cuing for proper movement and for coordination with TA >< Self-Care/Home Management Treatment Education Other Education Discussed results of evaluation, goals, and plan of care (POC). Pt agreeable to goals and POC. Activities Self-Care/Home Management Activities Reviewed and I/S pt in Kegel exercises for Quick Flicks, Long Holds & Aggrevators, with HO issued. I/S pt in TA tightening with log roll technique for DR protection. PT-OP-T Assessment and Plan Start: 09/27/22 19:58 Freq: Status: Active Protocol: Document 10/07/22 08:05 LRN (Rec: 10/07/22 08:52 LRN [id number]) Physical Therapy Assessment Rehab Potential Rehabilitation Potential Good Evaluation Complexity Number of Personal Factors/Comorbidities 1-2 Number of Body Systems Impaired 4 or More Clinical Presentation at Evaluation Evolving Impairments Impairments Activity Tolerance,Posture,ROM ,Soft Tissue Mobility,Strength ,Tone Goals Three Impairment Stress urinary incontinence Impairment Urinary leakage with laughing, cough and sneezing. Short Term Goal (STG) Improve PF strength per Long Hold to 10 sec's and Quick Flicks 10 reps prior to fatigue, or PF strength to 3/ 5 strength. STG Duration 11/21/22 Intermediate Goal (LTG) Pt will have decreased complaints of urinary stress incontinent symptoms and will be able to maintain continence in the presence of a strong cough, sneeze and with laughing. LTG Duration 01/05/23 Two Impairment Diastasis Rectus (DR) with difficulty maintaining core stability. Impairment Pt not able to maintain core stability while lifting of legs against gravity for Hip flex/ext and without abdominal doming. Short Term Goal (STG) Pt will be educated in methods to protect the core against worsening of DR. STG Duration 11/21/22 Plastic Surgery Assistant Goal (LTG) Pt able to maintain core stability without abdominal doming while lifting of legs against gravity for Hip flex/ ext. LTG Duration 01/05/23 One Impairment Pt lacks an independent self care HEP Short Term Goal (STG) Pt educated in proper transfers and body mechanics for ADLS and exercise to lessen core abdominal pressures for protection of DR . STG Duration 11/21/22 Plastic Surgery Assistant Goal (LTG) Pt will be independent in a self care HEP for PF strengthening to be able to ex and know what to do to keep DR from getting worse and to decrease the pooch (ex recommendations and to strengthen the core). LTG Duration 01/05/23 Assessment Summary Assessment Pt is a 31 yo female who is 11 weeks post . She presents with a notable Diastasis Rectus (DR) from the Xyphoid process to just above the pubic bone. She appears to have much weakness of her rectus abdominus and TA; therefore I was not able to palpate the edges of her Rectus when contracted while in supine. The pt's primary area of concern was her DR; therefore focus of today's evaluation was on her diastasis. Further assessment of her pelvic floor (PF) will be at her next schedule visit . The pt demonstrates some postural changes and mobility restrictions of her hips; therefore manual therapy and education will be needed. The pt is expected to take an extended time for full rehabilitation due to her post - and status; therefore the pt may need a break in her therapy once she has been progressed as far as possible on her HEP, then would be appropriate for return once she is 6 months past for return to full exercise function. The pt will benefit from skilled physical therapy to work towards achieving the above stated goals. Physical Therapy Plan Frequency and Duration Frequency of Treatment 1x/Week Plan of Care Start Date 10/07/22 Plan of Care End Date 01/05/23 Therapeutic Interventions Therapeutic Interventions Home Exercise Program,Joint Mobilizations,Manual Therapy, Neuromuscular Re-education, Patient/Caregiver Education, Self-Care/Home Management,Soft Tissue Mobilization,Taping, Therapeutic Activities, Therapeutic Exercises Next Visit Focus/Plan Next Note Type Treatment Note Next Visit Plan Review Kegel ex's and assess PF internally and if needed with Biofeedback and ex's as needed. Review proper breathing with transfer (log roll technique for DR protection) Educate pt in proper core pressure management with cough /sneeze. Education: educate in proper transfers and body mechanics for ADLS and exercise to lessen core abdominal pressures for protection of DR . K-tape to . Assess abdominal soft tissue (bladder ) mobility. Monitor doming with core activation for progression of ex's and treat soft tissue of abdomen (Manual: DR: umbilical hernia - urachus/GI fascial mobs, T/S mobs, and as needed-sacral/pelvic and thoracic balancing). Manual to T/S spine if needed. Ther Ex: Trunk rotation strengthening, hip stretch (ER L>R, IR R>L), core/pelvic strengthening to minimize DR, PF strengthening: Deep breathing w/ LE roll in/out ex . HEP progression
--- NOTE | 2022-11-03 16:59 | PT.OTN ---
Current Diagnoses Stiffness of unspecified hip, not elsewhere classified (11/03/22) Separation of muscle (nontraumatic), other site (11/03/22) Muscle weakness (generalized) (11/03/22) Stress incontinence (female) (male) (11/03/22) Physical Therapy Treatment Note PT-OP-A Visit Information Start: 09/27/22 19:58 Freq: Status: Active Protocol: Document 11/03/22 12:36 LRN (Rec: 11/03/22 13:22 LRN [id number]) Out-Patient Physical Therapy Visit Information Visit Information Visit Type Treatment Note Visit Start Time 12:36 Visit Stop Time 13:18 Total Visit Minutes 44 Visit Number 2 Evaluation Information Evaluation Date 10/07/22 Precautions Precautions ACL meniscus repair 10/31/21 PT-OP-B Current Condition Start: 09/27/22 19:58 Freq: Status: Active Protocol: Document 10/07/22 08:05 LRN (Rec: 10/07/22 08:52 LRN [id number]) Current Condition History of Current Condition Onset Date 07/20/[address] and mild urinary incontinence History of Current Condition Physical therapy for Diastasis Rectusis as referred following 6 wk post with 3 finger separation and doming found. States her abdomen is different from first , because tummy went down right away and she was able to return to exercise . Pt reports a little urinary incontinence before following of oldest son. She is currently and breastfed first son for 13 months. 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 States she did not fully complete her s/p meniscus repair due to and her R knee doesn 't feel strong/stable and is painful with squatting and can 't run confidently. Exercise runs around track intermittently ~1/week. Prior Treatments and Tests None. Developmental History Developmental History 2 sons (11/23/2019 and 07/20/22) . Vaginal delivieries w/o tearing. Has IUD placed at 6 wks post- (08/31/22). Treatment Goals Patient/Caregiver Goals Pt goal is: - to be able to ex and work out and know what to do to keep it from getting worse and to decrease the pooch (ex recommendations and to strengthen the core). - to eliminate urinary incontinence. Personal Factors Other Personal Factors That May Effect ACL meniscus repair 10/31/21. Therapy/Recovery Lives [place] with spouse and 2 sons, ages 2 yo and soon to be 3 month old. PT-OP-C Subjective Start: 09/27/22 19:58 Freq: Status: Active Protocol: Document 11/03/22 12:36 LRN (Rec: 11/03/22 13:22 LRN [id number]) OP-PT Subjective Patient Comments Patient Comments No change. PT-OP-J Posture/Palpation/Skin Start: 09/27/22 19:58 Freq: Status: Active Protocol: Document 10/07/22 08:05 LRN (Rec: 10/07/22 08:52 LRN [id number]) Posture Evaluation Position Standing L-Spine Posture Increased Lordosis Shoulder Posture (L) Elevated Pelvis Posture (L) Rotated Anterior Weight Distribution Balanced Hip Posture (R) Internally Rotated Knee Posture (L) Genu Varus,(R) Genu Varus, (L) Genu Valgus Ankle/Foot Posture (L) Supinated Foot Arch (L) Medium Arch,(R) Medium Arch Comments Posture Comments Supine: R ASIS is anterior Prone: R PSIS is anterior Palpation Assessment Location Abdomen Palpation Location Diastasis Rectus Palpation Details Decreased abdominal muscle tone. Rectus Diastasis Measurements: Umbilicus 4 above: 1.5 finger width (~2.5 cm) Umbilicus 3 above: 3 finger widths Umbilicus 2 above: 3.25 finger widths Umbilicus 1 above: 3.5 finger widths Umbilicus Umbilicus: 1 below: 4 finger widths Umbilicus: 2 below: 3.5 finger widths Umbilicus: 3 below: not able to feel rectus edges. PT-OP-K Range of Motion Start: 09/27/22 19:58 Freq: Status: Active Protocol: Document 10/07/22 08:05 LRN (Rec: 10/07/22 08:52 LRN [id number]) Lumbar Spine Range of Motion Lumbar Spine Active Degrees Testing Position Standing Flexion 80 Extension 28 Rotation Left 45 Rotation Right 45 Lateral Flexion Left 13 Lateral Flexion Right 13 ROM Limitations Soft Tissue Tightness Comments Trunk AROM: Flexion is 80 deg ?s with 60 deg?s hip flexion, Trunk extension is 28 deg?s with 3 deg?s hip extension. Hip Goniometric Range of Motion Hip Right Passive Testing Position Supine Abduction 50 Internal Rotation 30 External Rotation 68 Left Passive Testing Position Supine Abduction 30 Internal Rotation 35 External Rotation 40 PT-OP-M Strength Start: 09/27/22 19:58 Freq: Status: Active Protocol: Document 10/07/22 08:05 LRN (Rec: 10/07/22 08:52 LRN [id number]) Trunk Strength Trunk Manual Muscle Testing Rotation Left 3+ Fair+ Rotation Right 3+ Fair+ Core Stabilization Lacks core stability with MMT of R hip ext and with neftaly flexion. Doming occured. Hip Strength Hip Manual Muscle Testing Right Comments Generallly 5/5 Left Comments Generallly 5/5 PT-OP-Q Treatments Start: 09/27/22 19:58 Freq: Status: Active Protocol: Document 11/03/22 12:36 LRN (Rec: 11/03/22 13:22 LRN [id number]) Therapeutic Exercises Supine Exercises TA w/laugh, cough, sneeze Supine Exercise Name TA tightening retraining for laugh, cough, sneeze Reps/Minutes 5x each TA tightening Supine Exercise Name TA tightening Reps/Minutes 10 SH x 6 Comments Extra time for teaching ex. Normal breath with TA tight Supine Exercise Name Normal breathing w/TA tight Reps/Minutes 2' Deep Breathing Supine Exercise Name Deep Breathing Reps/Minutes 3' Sidelying Exercises TA tightening Sidelying Exercise Name TA tightening Side bilateral Reps/Minutes 10 SH x 6 Comments Extra time for teaching ex. Self-Care/Home Management Treatment Education Other Education Pt educated in timeline for TA tightening and reduction of DR maximally 6 month s/p . Pt education and discussion in Urge deference technique with handout (HO) issued. Pt education in changes in posture with w/HO issued. Pt educated in use of towel to protect DR with transfers and ex, w/HO issued. PT-OP-T Assessment and Plan Start: 09/27/22 19:58 Freq: Status: Active Protocol: Document 11/03/22 12:36 LRN (Rec: 11/03/22 13:22 LRN [id number]) Physical Therapy Assessment Goals Three Impairment Stress urinary incontinence Impairment Urinary leakage with laughing, cough and sneezing. Short Term Goal (STG) Improve PF strength per Long Hold to 10 sec's and Quick Flicks 10 reps prior to fatigue, or PF strength to 3/ 5 strength. STG Duration 11/21/22 Longterm Goal (LTG) Pt will have decreased complaints of urinary stress incontinent symptoms and will be able to maintain continence in the presence of a strong cough, sneeze and with laughing. LTG Duration 01/05/23 Two Impairment Diastasis Rectus (DR) with difficulty maintaining core stability. Impairment Pt not able to maintain core stability while lifting of legs against gravity for Hip flex/ext and without abdominal doming. Short Term Goal (STG) Pt will be educated in methods to protect the core against worsening of DR. 11/03/22: Pt educated in use of towel for transfers to protect DR and started TA strengthening. STG Duration 11/21/22 progressed 11/03/22 Agricultural Economics Teacher Goal (LTG) Pt able to maintain core stability without abdominal doming while lifting of legs against gravity for Hip flex/ ext. LTG Duration 01/05/23 One Impairment Pt lacks an independent self care HEP Short Term Goal (STG) Pt educated in proper transfers and body mechanics for ADLS and exercise to lessen core abdominal pressures for protection of DR . 11/03/22: Pt educated in proper transfers and body mechanics for ADLs and protection of DR. STG Duration 11/21/22 progressed 11/03/22 ( need educ & ex to lessen core abdom pressure) Agricultural Economics Teacher Goal (LTG) Pt will be independent in a self care HEP for PF strengthening to be able to ex and know what to do to keep DR from getting worse and to decrease the pooch (ex recommendations and to strengthen the core). 11/03/22: Pt educated in what to do to keep DR from getting worse with use of towel during transfers and TA strengthening with monitoring for doming. LTG Duration 01/05/23 progressed 11/03/22 ( need HEP & PF strengthening) Assessment Summary Assessment Pt not able to control TA ( doming noted) with laugh, cough, sneeze . Pt chest breathes, so able to hold TA with breathing. Good understanding on use of towel for DR protection with transfers. Discussion of breathwork needed for PF strengthening. Physical Therapy Plan Frequency and Duration Frequency of Treatment 1x/Week Plan of Care Start Date 10/07/22 Plan of Care End Date 01/05/23 Next Visit Focus/Plan Next Note Type Treatment Note Next Visit Plan Review Kegel ex's and assess PF internally and if needed with Biofeedback and ex's as needed. Review proper breathing with transfer (log roll technique for DR protection) Educate pt in proper core pressure management with cough /sneeze. Review: proper transfers. Educate in lessening core abdominal pressures for protection of DR with exercise . K-tape to DR. Assess abdominal soft tissue (bladder ) mobility. Monitor doming with core activation for progression of ex's and treat soft tissue of abdomen (Manual: DR: umbilical hernia - urachus/GI fascial mobs, T/S mobs, and as needed-sacral/pelvic and thoracic balancing). Manual to T/S spine if needed. Ther Ex: Trunk rotation strengthening, hip stretch (ER L>R, IR R>L), core/pelvic strengthening to minimize DR, PF strengthening: Deep breathing w/ LE roll in/out ex . HEP progression
--- NOTE | 2023-01-03 11:03 | PT.OPDS ---
Current Diagnoses Stiffness of unspecified hip, not elsewhere classified (12/02/22) Separation of muscle (nontraumatic), other site (12/02/22) Muscle weakness (generalized) (12/02/22) Stress incontinence (female) (male) (12/02/22) Visit Care Team Role Provider Type ANITA Galloway Primary Care Provider Non-Staff Specialty: Nursing Address: [address] [place] [address], [id number] Email: Neetu Wiseman CNM Attending Provider Advanced Health Care Coach Referring Provider Specialty: TRAFFIC SIGNAL TECHNICIAN Address: [address] [place] [address], [place] [address], [place], [address] Email: [email or web address] Visit Number Visit Number 3 Discharge Summary PT-OP-B Current Condition Start: 09/27/22 19:58 Freq: Status: Active Protocol: Document 10/07/22 08:05 LRN (Rec: 10/07/22 08:52 LRN [id number]) Current Condition History of Current Condition Onset Date 07/20/[address] and mild urinary incontinence History of Current Condition Physical therapy for Diastasis Rectusis as referred following 6 wk post with 3 finger separation and doming found. States her abdomen is different from first , because tummy went down right away and she was able to return to exercise . Pt reports a little urinary incontinence before following of oldest son. She is currently and breastfed first son for 13 months. 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 States she did not fully complete her s/p meniscus repair due to and her R knee doesn 't feel strong/stable and is painful with squatting and can 't run confidently. Exercise runs around track intermittently ~1/week. Prior Treatments and Tests None. Developmental History Developmental History 2 sons (11/23/2019 and 07/20/22) . Vaginal delivieries w/o tearing. Has IUD placed at 6 wks post- (08/31/22). Treatment Goals Patient/Caregiver Goals Pt goal is: - to be able to ex and work out and know what to do to keep it from getting worse and to decrease the pooch (ex recommendations and to strengthen the core). - to eliminate urinary incontinence. Personal Factors Other Personal Factors That May Effect ACL meniscus repair 10/31/21. Therapy/Recovery Lives [place] with spouse and 2 sons, ages 2 yo and soon to be 3 month old. PT-OP-C Subjective Start: 09/27/22 19:58 Freq: Status: Active Protocol: Document 12/02/22 08:49 LRN (Rec: 12/02/22 10:22 LRN [id number]) OP-PT Subjective Patient Comments Patient Comments Urge deference technique is helping to avoid leaking, but sneezed and leaked. PT-OP-I Pelvic Floor Start: 09/27/22 19:58 Freq: Status: Active Protocol: Document 12/02/22 08:49 LRN (Rec: 12/02/22 16:20 LRN [id number]) Pelvic Floor Assessment Pelvic Clock Pelvic Clock Other No tenderness. Contraction Ability Manual Muscle Testing Left 2 Manual Muscle Testing Right 0 Manual Muscle Testing Posterior 3 Number of Quick Contractions In 10 8 Seconds Comments Pelvic Floor Comments 7-9 of PF Clock strength is 0/ 5. PT-OP-J Posture/Palpation/Skin Start: 09/27/22 19:58 Freq: Status: Active Protocol: Document 12/02/22 08:49 LRN (Rec: 12/02/22 16:17 LRN [id number]) Palpation Assessment Location Abdomen Palpation Location Diastasis Rectus Palpation Details Decreased abdominal muscle tone. Rectus Diastasis Measurements: Umbilicus 4 above: 1.5 finger width (~2.5 cm), shallow Umbilicus 3 above: 2.5 finger widths Umbilicus 2 above: 3.0 finger widths Umbilicus 1 above: 3.5 finger widths Umbilicus Umbilicus: 1 below: 2.5 finger widths Umbilicus: 2 below: 2.5 finger widths Umbilicus: 3 below: 1.5 feeling rectus edge. PT-OP-K Range of Motion Start: 09/27/22 19:58 Freq: Status: Active Protocol: Document 10/07/22 08:05 LRN (Rec: 10/07/22 08:52 LRN [id number]) Lumbar Spine Range of Motion Lumbar Spine Active Degrees Testing Position Standing Flexion 80 Extension 28 Rotation Left 45 Rotation Right 45 Lateral Flexion Left 13 Lateral Flexion Right 13 ROM Limitations Soft Tissue Tightness Comments Trunk AROM: Flexion is 80 deg ?s with 60 deg?s hip flexion, Trunk extension is 28 deg?s with 3 deg?s hip extension. Hip Goniometric Range of Motion Hip Right Passive Testing Position Supine Abduction 50 Internal Rotation 30 External Rotation 68 Left Passive Testing Position Supine Abduction 30 Internal Rotation 35 External Rotation 40 PT-OP-M Strength Start: 09/27/22 19:58 Freq: Status: Active Protocol: Document 10/07/22 08:05 LRN (Rec: 10/07/22 08:52 LRN [id number]) Trunk Strength Trunk Manual Muscle Testing Rotation Left 3+ Fair+ Rotation Right 3+ Fair+ Core Stabilization Lacks core stability with MMT of R hip ext and with neftaly flexion. Doming occured. Hip Strength Hip Manual Muscle Testing Right Comments Generallly 5/5 Left Comments Generallly 5/5 PT-OP-T Assessment and Plan Start: 09/27/22 19:58 Freq: Status: Active Protocol: Document 01/03/23 10:57 LRN (Rec: 01/03/23 11:02 LRN [id number]) Physical Therapy Assessment Goals Three Impairment Stress urinary incontinence Impairment Urinary leakage with laughing, cough and sneezing. Short Term Goal (STG) Improve PF strength per Long Hold to 10 sec's and Quick Flicks 10 reps prior to fatigue, or PF strength to 3/5 strength. 12/02/22: Leaked with sneezing. STG Duration 11/21/22 Pusher Operator Goal (LTG) Pt will have decreased complaints of urinary stress incontinent symptoms and will be able to maintain continence in the presence of a strong cough, sneeze and with laughing. LTG Duration 01/05/23 Two Impairment Diastasis Rectus (DR) with difficulty maintaining core stability. Impairment Pt not able to maintain core stability while lifting of legs against gravity for Hip flex/ext and without abdominal doming. Short Term Goal (STG) Pt will be educated in methods to protect the core against worsening of DR. 11/03/22: Pt educated in use of towel for transfers to protect DR and started TA strengthening. STG Duration 11/21/22 progressed 11/03/22 Shelter Goal (LTG) Pt able to maintain core stability without abdominal doming while lifting of legs against gravity for Hip flex/ ext. LTG Duration 01/05/23 One Impairment Pt lacks an independent self care HEP Short Term Goal (STG) Pt educated in proper transfers and body mechanics for ADLS and exercise to lessen core abdominal pressures for protection of DR . 11/03/22: Pt educated in proper transfers and body mechanics for ADLs and protection of DR. STG Duration 11/21/22 progressed 11/03/22 ( need educ & ex to lessen core abdom pressure) Pusher Operator Goal (LTG) Pt will be independent in a self care HEP for PF strengthening to be able to ex and know what to do to keep DR from getting worse and to decrease the pooch (ex recommendations and to strengthen the core). 11/03/22: Pt educated in what to do to keep DR from getting worse with use of towel during transfers and TA strengthening with monitoring for doming. LTG Duration 01/05/23 progressed 11/03/22 ( need HEP & PF strengthening) Assessment Summary Assessment Msg received 12/06/22 that pt called to request cancel of all appointments. Pt was seen for her initial eval and 2 treatment visits. She was started on a HEP of PF and DR ex's with education in protrection of DR/core. Due to early discharge the pt did not meet her goals. Physical Therapy Plan Discharge Physical Therapy Discharge Reasons No Longer Attending PT Discharge Comments Pt would benefit from completion of woman's health PT in the future. Thank you for your referral.
== END 2023-01-04 16:53 | disposition home or self-care (01) ==
LOC: PHYS 08:45
PROVIDERS: PCP Nurse Practitioner; Referring Provider Nurse Practitioner Obstetrics & Gynecology; Visit Provider Nurse Practitioner Obstetrics & Gynecology
DX: M62.08 Separation of muscle (nontraumatic), other site (principal); N39.3 Stress incontinence (female) (male); M25.659 Stiffness of unspecified hip, not elsewhere classified; M62.81 Muscle weakness (generalized)
CPT/HCPCS: 97110; 97140; 97162; 97535